=== PATIENT | female | born 2000 | race Caucasian/White ===

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

== ENCOUNTER 2022-04-15 00:52 | Emergency (ER) | payer OTHER, SELFPAY ==
[2022-04-15] MEDS: ONDANSETRON HCL ODT 4 MG TABLET PO (01:24)
[2022-04-15 01:30] VITALS: BP 137/82; PULSE 110; RESP 16; TEMP 36.6; O2SAT 100
[2022-04-15 01:35] LABS: Basophils Absolute Auto 0.1 K/mm3 (0.0-0.1); Basophils Percent Auto 0.5 % (0.2-1.2); Eosinophils Absolute Auto 0.1 K/mm3 (0-0.3); Eosinophils Percent Auto 1.1 % (0-4.4); Hematocrit 40.8 % (37.0-47.0); Hemoglobin 13.4 g/dL (12.0-15.0); Immature Granulocyte Absolute 0.02 K/mm3 (0.00-0.031); Immature Granulocyte Percent A 0.2 % (0-0.5); Lymphocytes Absolute Auto 2.35 K/mm3 (0.9-3.2); Lymphocytes Percent Auto 25.7 % (18.3-44.2); Mean Corpuscular HGB Conc 32.8 g/dl (32-36); Mean Corpuscular Hemoglobin 29.8 pg (26-34); Mean Corpuscular Volume 90.7 fl (80-100); Mean Platelet Volume 9.2 fl (7.4-10.4); Monocytes Absolute Auto 0.7 K/mm3 (0.1-0.6); Monocytes Percent Auto 7.2 % (2.6-8.5); Neutrophils Percent Auto 65.3 % (45.5-73.1); Platelet Count Result 185 k/mm3 (150-375); Red Cell Distribution Width 12.1 % (11.5-14.5); White Blood Count 9.2 K/mm3 (4.5-10.0)
[2022-04-15 01:45] LABS: Alanine Aminotransferase 16 U/L (6-35); Albumin Level 4.9 g/dL (3.7-5.6); Alkaline Phosphatase 67 U/L (45-116); Anion Gap 9 mmol/L (8-16); Aspartate Amino Transferase 22 U/L (14-36); Bilirubin,Total 0.7 mg/dL (0.2-1.3); Blood Urea Nitrogen 6 mg/dL (8-21); Carbon Dioxide 24 mmol/L (22-30); Chloride 105 mmol/L (98-107); Estimated Glomerular Filt Rate > 60; Glucose 94 mg/dL (65-110); Lipase 61 U/L (23-300); Potassium 3.6 mmol/L (3.4-5.0); Sodium 138 mmol/L (134-143)
[2022-04-15 02:12] LABS: Influenza A QL RT-PCR Negative (Negative); Influenza B QL RT-PCR Negative (Negative); RSV RNA, RT-PCR Negative (Negative); SARS-CoV-2 RNA PCR Negative
--- NOTE | 2022-04-15 03:06 | PC.NURSE ---
patient to room at this time noted to be asleep in waiting room for last hour states she feels better
--- NOTE | 2022-04-15 03:19 | ED.GENADULT ---
HPI - General Adult General Chief complaint: Nausea/Vomiting/Diarrhea Stated complaint: nausea vomiting times 1 day Time Seen by Provider: 04/15/22 03:09 History of Present Illness HPI narrative: this is a 21-year-old female presenting to ED with a chief complaint of nausea and vomiting. Patient has had symptoms for 1 day that. They include nausea and vomiting, Diarrhea,headache, muscle aches and chills. patient denies fever, chest pain, difficulty breathing, abdominal pain. Patient does have a rash over her abdomen/back but she has had that for several weeks and is being treated for a fungal infection. Related Data Allergies Allergy/AdvReac Type Severity Reaction Status Date / Time No Known Allergies Allergy Verified 12/28/21 01:34 Review of Systems Review of Systems: CONSTITUTIONAL: Denies night sweats. EYES: No eye pain ENT: Denies rhinorrhea CARDIOVASCULAR: Denies palpitations RESPIRATORY: Denies hemoptysis GASTROINTESTINAL: Denies hematemesis GENITOURINARY: Denies hematuria. SKIN: Admits rash MUSCULOSKELETAL: Denies myalgia. NEUROLOGIC: Denies weakness. PSYCHIATRIC: Denies delusions PMFSH Past Medical History Medical History Healthy female adult Surgical History Surgical History No history of previous surgery Social History Social History (Updated 04/15/22 @ 03:23 by Messi Nunez MD) Social History: Patient denies alcohol or tobacco or drug use. She does use a vape pen. Smoking status: Never smoker Exam Narrative: APPEARANCE: No apparent distress. Head: atraumatic. EYES: EOMI, NOSE: Atraumatic NECK: Trachea midline RESPIRATORY: No increased rate of breathing CARDIOVASCULAR: RRR, ABDOMINAL: Non-distended , no guarding or rebound MUSCULOSKELETAl: No obvious deformities NEURO: Alert. Moving 4/4 extremities SKIN:: patient has a scaly rash near her belly button and across her chest as well as along the upper portion of her glutes. PSYCHIATRIC: Normal affect Course Vital Signs Vital signs: Vital Signs Temperature 97.8 F 04/15/22 01:30 Pulse Rate 110 H 04/15/22 01:30 Respiratory Rate 16 04/15/22 01:30 Blood Pressure 137/82 04/15/22 01:30 Pulse Oximetry 100 04/15/22 01:30 Temperature 97.8 F 04/15/22 01:30 Pulse Rate 110 H 04/15/22 01:30 Respiratory Rate 16 04/15/22 01:30 Blood Pressure 137/82 04/15/22 01:30 Pulse Oximetry 100 04/15/22 01:30 Medical Decision Making MDM Narrative Medical decision making narrative: this is a 21-year-old female presenting to ED with 1 day of nausea vomiting and diarrhea. Her symptoms are consistent with a viral syndrome. She was given Zofran and her symptoms improved. She is able to tolerate p.o.. She is not . Patient will be discharged with a prescription for Zofran, Motrin Tylenol. Vital Signs Vital Signs: Vital Signs Temperature 97.8 F 04/15/22 01:30 Pulse Rate 110 H 04/15/22 01:30 Respiratory Rate 16 04/15/22 01:30 Blood Pressure 137/82 04/15/22 01:30 Pulse Oximetry 100 04/15/22 01:30 Temperature 97.8 F 04/15/22 01:30 Pulse Rate 110 H 04/15/22 01:30 Respiratory Rate 16 04/15/22 01:30 Blood Pressure 137/82 04/15/22 01:30 Pulse Oximetry 100 04/15/22 01:30 Lab Data 04/15/22 01:25 04/15/22 01:25 Labs: Lab Results 04/15/22 04/15/22 04/15/22 Range/Units 01:25 01:25 01:25 WBC 9.2 (4.5-10.0) K/mm3 RBC 4.50 (4.2-5.4) M/mm3 Hgb 13.4 (12.0-15.0) g/dL Hct 40.8 (37.0-47.0) % MCV 90.7 (80-100) fl MCH 29.8 (26-34) pg MCHC 32.8 (32-36) g/dl RDW 12.1 (11.5-14.5) % Plt Count 185 (150-375) k/mm3 MPV 9.2 (7.4-10.4) fl Immature Gran % (Auto) 0.2 (0-0.5) % Neut % (Auto) 65.3 (45.5-73.1) % Lymph % (Auto) 25.7 (18.3-44.2) % Motley % (Auto) 7.2 (2.6-8.5
[2022-04-15 03:33] LABS: Appearance Urine Clear (Clear); Bilirubin Urine Negative (Negative); Blood Urine 3+ (Negative); Color Urine Yellow (Yellow); Glucose Urine UA Negative (Negative); Ketones Urine 1+ mg/dL (Negative); Leukocyte Esterase Ur Trace LEU/UL (Negative); Nitrate Urine Negative (Negative); Protein Urine Trace mg/dL (Negative); Urobilinogen Urine 0.2 mg/dL (<2.0); pH Urine 6.5 (5.0-9.0)
[2022-04-15 03:39] LABS: Bacteria Urine Trace /hpf; Mucus Urine Rare /lpf; RBC Urine >75 /hpf (0-2); Squamous Epithelial Cell Urine Occasional /hpf (Few)
[2022-04-15 03:41] LABS: Add Urine Microscopic? YES
--- NOTE | 2022-04-15 03:45 | PC.NURSE ---
patient able to tolerate po intake
== END 2022-04-15 04:28 | disposition home or self-care (01) ==
PROVIDERS: Emergency Provider Emergency Medicine
DX: K52.9 Noninfective gastroenteritis and colitis, unspecified (principal); F17.290 Nicotine dependence, other tobacco product, uncomplicated; Z20.822 Contact with and (suspected) exposure to COVID-19
CPT/HCPCS: 36415; 80053; 81001; 81025; 83690; 85025; 87637; 99283; A9270